=== PATIENT | male | born 1960 | race Caucasian/White ===

== ENCOUNTER 2019-11-19 12:02 | Emergency (ER) | payer OTHER | END 2019-11-19 15:36 | disposition other institution (70) | LOC: ED 12:02 | DX: Z02.89 Encounter for other administrative examinations (principal) ==

== ENCOUNTER 2019-11-19 12:02 | Emergency (ER) | payer SELFPAY ==
[~2019-11-19] VITALS: Ht 170.2 cm; Wt 81.6 kg
[2019-11-19 12:03] VITALS: Ht 170.2 cm; Wt 81.6 kg
[2019-11-19 13:04] LABS: BASOPHIL % 0.3 % (0-2); RED CELL DISTRIBUTION WIDTH 13.2 % (11.5-14.5)
[2019-11-19 13:10] LABS: PLATELET COUNT 105 x10^3mcL (130-400)
[2019-11-19 13:19] LABS: CALCIUM 9.1 mg/dL (8.5-10.1); CARBON DIOXIDE 26.6 mmol/L (21-32); CHLORIDE SERUM 107 mmol/L (98-107); CREATININE SERUM 0.8 mg/dL (0.7-1.3); GFR1 > 60 mL/min; GLUCOSE SERUM 133 mg/dL (74-106); POTASSIUM SERUM 3.4 mmol/L (3.5-5.1); SODIUM SERUM 144 mmol/L (136-145)
[2019-11-19 13:24] LABS: ALBUMIN 3.9 g/dL (3.4-5.0); ALKALINE PHOSPHATASE 67 U/L (46-116); ALT/SGPT 37 U/L (16-63); AST/SGOT 24 U/L (15-37); BILIRUBIN TOTAL 0.7 mg/dL (0.20-1.00); TOTAL PROTEIN, SERUM 7.3 g/dL (6.4-8.2)
[2019-11-19 15:36] VITALS: BP 132/67
== END 2019-11-19 15:36 | disposition other institution (70) ==
LOC: ED 12:02
PROVIDERS: Emergency Medicine
DX: R07.89 Other chest pain (principal); Z20.828 Contact with and (suspected) exposure to other viral communicable diseases
CPT/HCPCS: 85378; Q0092; Q9967; U0003-CS

== ENCOUNTER 2020-05-16 09:13 | Emergency (ER) | payer SELFPAY ==
[~2020-05-16] VITALS: Ht 175.3 cm; Wt 81.6 kg
[2020-05-16 09:22] VITALS: BP 120/74; Ht 175.3 cm; Wt 81.6 kg
== END 2020-05-16 10:37 | disposition home or self-care (01) ==
LOC: ED 09:13
DX: U07.1 COVID-19 (principal); R07.89 Other chest pain; R05 Cough
CPT/HCPCS: U0003